=== PATIENT | female | born 1940 | race Caucasian/White ===

== ENCOUNTER 2017-11-01 06:24 | Day surgery (SDC) | payer MEDICARE, BC ==
[~2017-11-01 06:24] MED LIST: MORPHINE SULFATE 15 MG TABLET.SA PO PRN; ROPIVACAINE HCL/PF 100 MG, KETOROLAC TROMETHAMINE 30 MG, EPINEPHrine 0.2 MG in NORMAL S... IJ PRN; TRANEXAMIC ACID 1,000 MG in NORMAL SALINE 100 ML IV PRN; ceFAZolin SODIUM 1 GM VIAL IV PRN
--- NOTE | 2017-11-01 07:19 | ANES ---
Anesthesia Pre Procedure Eval Vitals/Labs: Last Vital Signs Temp 36.8 C 11/01/17 06:35 Pulse 89 11/01/17 06:35 Resp 17 11/01/17 06:35 BP 140/54 11/01/17 06:35 Pulse Ox 96 11/01/17 06:35 HOME MEDICATIONS Aspirin [Aspirin Enteric Coated] 81 mg PO HS 12/12/13 [Last Taken 10/25/17] Bimatoprost [Lumigan 0.01% Ophthalmic Solution] 1 drop EACHEYE HS 12/12/13 [ Last Taken 10/31/17] Lisinopril/Hydrochlorothiazide [Lisinopril-Hctz 20-12.5 mg Tab] 1 each PO DAILY 12/12/13 [Last Taken 11/01/17] Simvastatin [Zocor] 10 mg PO HS 12/12/13 [Last Taken 10/31/17] Ascorbic Acid [Vitamin C] 500 mg PO DAILY 10/28/17 [Last Taken 10/31/17] Hydrochlorothiazide [Microzide] 12.5 mg PO DAILY PRN 10/28/17 [Last Taken Unknown] Multivitamin [One Daily Essential] 1 each PO DAILY 10/28/17 [Last Taken Unknown] Meloxicam [Mobic] 15 mg PO DAILY 10/29/17 [Last Taken 10/25/17] Magnesium Hydroxide [Milk Of Magnesia] 30 ml PO DAILY PRN 11/01/17 [Last Taken Unknown] [place]-3S/Dha/Epa/Fish Oil/D3 [Fish Oil Gummies] 1 each PO DAILY 11/01/17 [Last Taken 10/31/17] Psoriasis Cream 1 applic TP ONCE PRN 11/01/17 [Last Taken 10/31/17] Ranitidine HCl [Zantac] 150 mg PO HS 11/01/17 [Last Taken 10/31/17] Allergies/Adverse Reactions: Allergies Allergy/AdvReac Type Severity Reaction Status Date / Time No Known Allergies Allergy Verified 10/28/17 16:42 - Planned Procedure Planned Procedure: Left Total Knee Arthroplasty Medication List Reviewed:: Yes Allergies Verified: Yes Medical History (Last Updated 11/01/17 @ 07:01 by Renetta Velez RN) Anemia CPAP (continuous positive airway pressure) dependence Lives with spouse Psoriasis Back pain Chronic sinusitis Hypercholesterolemia Hypertension Left bundle branch block (LBBB) Never used tobacco Seldom use of alcohol Sleep apnea Surgical History (Last Updated 11/01/17 @ 06:53 by Renetta Velez, RN) History of bilateral cataract extraction History of hysterectomy Status post total right knee replacement Family History (Last Updated 11/01/17 @ 06:55 by Renetta Velez, RN) Sister A-fib Glaucoma Daughter BBB (bundle branch block) Hypertension Mother Breast cancer Son Cancer of kidney Hypertension Father Family history unknown Brother Family history unknown Daughter Alive and well Hypertension Son Hypertension Hypercholesteremia Type 2 diabetes mellitus - Airway/Neck/Teeth Within Normal Limits:: Yes Teeth Condition: Intact Mallampatti Score: 2 Thyromental (T-M) distance: > 6 cm Mandibulo Hyoid distance: > 3 cm - Respiratory Respiratory: lungs clear Discussed smoking cessation including day of surgery: No Sleep Apnea currently treated: Yes Sleep Apnea by current assessment: No Discussed Risks/Treatment of MAGDALENA: No - Cardiovascular Tolerates Activity: Fair Heart Sounds: S1 & S2, Regular - Anesthesia Assessment and Plan ASA Class: PS, II Anesthesia Type Plan: Block - Left ultrasound guided peripheral nerve block for postop analgesia, Spinal
[2017-11-01] MEDS: RINGER'S SOLUTION,LACTATED 1,000 ML IV PRN ×3 (07:27→09:24)
[2017-11-01] MEDS ORDERED: ZOLPIDEM TARTRATE 5 MG TABLET PO PRN (10:02)
[2017-11-01] MEDS ORDERED: ACETAMINOPHEN 500 MG TABLET PO PRN (10:02)
[2017-11-01] MEDS ORDERED: MORPHINE SULFATE 2 MG/ML DISP.SYRIN IV PRN (10:02)
[2017-11-01] MEDS ORDERED: PROMETHAZINE HCL 5 MG in DEXTROSE 5 % IN WATER 50 ML IV PRN ×2 (10:02)
[2017-11-01] MEDS ORDERED: MAG HYDROX/ALUMINUM HYD/SIMETH 30 ML UDC PO PRN (10:02)
[2017-11-01] MEDS ORDERED: DEXTROSE 5%-LACTATED RINGERS 1,000 ML IV PRN (10:02)
[2017-11-01] MEDS ORDERED: diphenhydrAMINE HCL 50 MG/ML VIAL IV PRN (10:02)
[2017-11-01] MEDS ORDERED: oxyCODONE HCL/ACETAMINOPHEN 1 TAB TABLET PO PRN (10:02)
[2017-11-01] MEDS ORDERED: MAGNESIUM HYDROXIDE 30 ML UDC PO PRN ×2 (10:02→13:45)
--- NOTE | 2017-11-01 10:02 | OR ---
Operative Report - Dictated Report Narrative: Date: 11/01/2017 Preoperative diagnosis: Left Knee degenerative joint disease. Postoperative diagnosis: Left Knee degenerative joint disease. Procedure: Left Total knee arthroplasty. Surgeon: Garrett Smith M.D. Electrical System Specialist: Jose Eduardo Byrd PA-C Anesthesia: Spinal with regional block and local periarticular joint injection. Complications: None Specimens: Bone for disposal. Estimated blood loss: Minimal. Tourniquet time: 80 Minutes at 325 millimeters of mercury. Retained implants: Depuy Attune size 5 narrow left lugged cemented posterior stabilized femoral component. Size 4 fixed-bearing cemented tibial platform. 5 by 5 millimeter posterior stabilized cross-linked tibial insert. 35 millimeter medialized patella button. Indications: Mrs. Tavarez is a 77-year-old female who has had long-standing left knee pain and arthrosis. This patient was followed in my clinic for period of time with significant complaints of left knee pain consistent with arthritic changes. She had failed conservative measures including, but not limited to, activity modification, passage of time, medications, and other conservative measures. Patient wished to proceed with surgical treatment. The risks, benefits, and alternatives were discussed in clinic. The risks of , blood clots, bleeding, infection, nerve/tendon blood vessel/ injury, malposition of components, intraoperative fracture, postoperative limited range of motion, persistent pain, failure of components, and need for additional procedures. Patient wished to proceed consent was obtained after answering all questions. Procedure: After marking the correct extremity on the floor, the patient was taken to the operating room. A timeout was performed. IV antibiotics consisting of Ancef were administered prior to the procedure. A regional followed by spinal anesthetic was induced by anesthesia, per my request, on the operative table with all bony prominences well-padded. Mullins catheter was placed, and a bump was placed under the operative side buttock. SCDs and KUNAL hose were utilized on the nonoperative leg. A well-padded tourniquet was applied to the operative thigh. The operative leg was then pre-scrubbed with alcohol prepped, and draped in a standard sterile fashion. After exsanguinating the extremity with an Esmarch bandage, the tourniquet was inflated. After marking out the anterior knee for standard incision centered over the patella, the skin was incised and dissected down to the joint retinaculum. The joint retinaculum was marked out as well as the horizontal axis of the patella, and a standard medial parapatellar arthrotomy was then made. The most proximal aspect of the quadriceps tendon and the patella tendon insertion were protected from release. A partial synovectomy was performed as well as a resection of the infrapatellar fat pad. The distal femoral fat pad proximal to the trochlea was also resected using cautery. The soft tissues were elevated off the medial aspect of the proximal tibia using a Holman elevator ensuring that we did not transect the medial collateral ligament. Upon initial evaluation range of motion was approximately 5 degrees to 125 degrees of flexion. There were signs of advanced arthrosis in the medial, lateral, and patellofemoral joint spaces. There were large marginal osteophytes which were removed with a rongeur. The knee was hyperflexed and the patella was tucked laterally. Protecting the surrounding soft tissues with Homans, an entry drill was placed down the femoral canal using Whitesides line for guidance into the entry point. The intramedullary femoral alignment jimmy was utilized in order to cut the distal femur in 5 degrees of valgus resecting 10 millimeters of bone. Next the distal femur was sized to a size 5. A posterior referencing guide was utilized to place the distal femoral cutting block in 3 degrees of external rotation. This was pinned into place. The rotation was confirmed both visually and based on anatomic landmarks. The 4 in 1 cutting jig of the appropriate size was utilized in order to make all bony cuts. The angle wing was used to ensure no notching. Retractors were utilized in order to protect surrounding soft tissues. This cut did not result in any excessive notching. We then cut the box centered over the distal femur. This allowed for resection of the anterior and posterior cruciate ligaments. I then turned my attention to the preparation of the tibia. Using an extra medullary tibial alignment jimmy, 2 millimeters of bone was resected off the medial articular surface. This was made perpendicular to the mechanical axis of the joint with the alignment jimmy centered over the ankle mortise. The alignment jimmy was checked and was noted to be parallel to the mechanical axis, centered over the medial one third of the tibial tubercle, paralleling the anterior surface of the tibia. We then turned our attention to the remaining meniscus and soft tissues. These were removed while protecting the surrounding ligaments and soft tissues. The marginal osteophytes off the anterior, posterior, medial, lateral aspects of the femur and tibia were removed. The tibia was sized out to a size 4. Next the tibia was drilled and punched in an externally rotated position. Next the trial femur and a series of tibial inserts were utilized in order to allow for full extension and maximal flexion. It was found that a 5 millimeter insert gave the best range of motion and stability at multiple flexion points as well as at full extension there was less than 2 mm of gapping both medially and laterally. There is minimal anterior translation with the knee at 90 degrees of flexion and no signs of being able to dislocate the knee. The patella was then prepared. The initial thickness was 18 millimeters. This was reamed down to 11 millimeters parallel to the anterior surface of the patella. It was sized out to a size 35 medialized patella button. This was then drilled and trialed. Without any medial restraint the patella tracked appropriately and did not sublux or dislocate. At this point, it was felt these were the appropriate sized implants, and all trials were removed. The standard periarticular joint injection consisting of ropivacaine, Toradol, and epinephrine were injected into the periarticular joint tissues. The bony surfaces were thoroughly irrigated with a pulsatile- suction saline irrigation device. A bone plug from the prior resected anterior chamfer cut was placed into the drill hole at the distal femur. The bony surfaces were then dried in preparation for placement of the implants. The cement was vacuum mixed per the portfolio director's instructions. The cement was placed on the dry bony surfaces and posterior aspect of the implants. The implants were impacted into place, removing all extruded cement. At this point anesthesia administered tranexamic acid per protocol intravenously. The knee was placed in extension with axial loading with the trial insert while the cement cured. Once the cement cured, all remaining extruded cement was removed. The knee was placed through a range of motion with the trial insert to ensure appropriate range of motion and stability. Final range of motion was approximately 0 to 125 degrees. The knee was again thoroughly irrigated with pulsatile saline lavage. The final polyethylene insert was then impacted into place ensuring no retained soft tissues. The remaining periarticular joint injection was injected. A medium Hemovac drain was placed exiting superior laterally. The knee was then placed over a triangle and the arthrotomy was closed with interrupted #1 Vicryl after thoroughly irrigating the joint. The deep and subcutaneous tissues were closed with interrupted 0 and 3-0 Vicryl respectively. Skin was closed with a running subcutaneous 3-0 Monocryl and Prineo Dermabond dressing. 4 x 4's, Sof-Rol, and a full leg Shaan wrap were applied. All sponge, needle, blade, and instrument counts were correct prior to closing the wounds. Postoperative condition: The patient was awoken and transferred to the postanesthesia care unit in stable condition. Plan is to be admitted to the inpatient medical/surgical floor postoperatively for 24 hours of IV antibiotics , physical therapy, occupational therapy, and medical comanagement. Patient will be weightbearing as tolerated with range of motion as tolerated. DVT prophylaxis will be with SCDs, KUNAL hose, and pharmacological anticoagulation. Anticipated hospital stay is approximately 1-3 days.
--- NOTE | 2017-11-01 10:24 | ANES ---
Post Anesthesia Discharge - Transfer of Care Transfer of Care handoff given to nurse: Yes - Discharge from PACU Discharge from PACU when meets criteria: Yes - Discharge to ASU Discharge to ASU-no complications/pt stable: Yes
--- NOTE | 2017-11-01 10:29 | ANES ---
Anesthesia Procedure Note Procedure Note: ANESTHESIA PROCEDURE NOTE Date of Procedure: 11/01/2017. Time of procedure: 0750. Performed by: Valeriy Aj CRNA Step Down Specialist: None. Preprocedure diagnosis: Left knee degenerative joint disease. Post procedure diagnosis: Same. Procedure: Left ultrasound guided adductor canal block for postoperative analgesia. Indications: The patient is a 77 -year-old female, requesting left ultrasound- guided abductor canal block for postoperative analgesia related to left total knee arthroplasty. Findings: See below. Details of the procedure: The tissue over the intended target site was cleansed with ChloraPrepand draped in a sterile fashion. 2 ml Lidocaine 1 % was infiltrated to the skin and subcutaneous tissue at the intended target site. Under sterile technique and ultrasound guidance a 18-gauge Tuohy needle was inserted through the left sartorius muscle to the saphenous nerve just anterior and medial to the superficial femoral artery and vein. 15 mL's of 0.5% bupivacaine was injected after negative aspiration for blood. Needle tip and spread of local anesthetic surrounding the saphenous nerve was observed throughout the injection with real time ultrasound visualization. The images were retained in the Hospital medical database . EBL: Minimal. Fluids: N/A. Specimen: N/A. Post procedure condition: The patient tolerated the procedure well. No complications were noted. Thank you for this consultation. Valeriy Aj CRNA
[2017-11-01] MEDS: KETOROLAC TROMETHAMINE 15 MG/ML VIAL IV SCH ×3 (11:53→23:47)
[2017-11-01] MEDS: ONDANSETRON HCL/PF 2 MG/ML VIAL IV PRN (11:54)
--- NOTE | 2017-11-01 13:44 | ANES ---
Post Anesthesia Assessment - Vital Signs Vitals: Last Vital Signs Temp 36.3 C 11/01/17 10:15 Pulse 96 11/01/17 10:40 Resp 15 11/01/17 10:40 BP 121/52 11/01/17 10:40 Pulse Ox 97 11/01/17 10:40 Airway Patency: Normal - Mental Status Level Of Consciousness: Awake - Pain Level Pain Score: 0 - N/V Assessment Nausea/Vomiting Presence: None Dehydration:: No
[2017-11-01] MEDS ORDERED: HYDROCHLOROTHIAZIDE 12.5 MG CAPSULE PO PRN (13:45)
[2017-11-01] MEDS: ceFAZolin SODIUM 1 GM in DEXTROSE 5 % IN WATER 100 ML IV SCH ×4 (14:48→20:03)
[2017-11-01] MEDS: MORPHINE SULFATE 15 MG TABLET.SA PO SCH (20:04)
[2017-11-01] MEDS ORDERED: SIMVASTATIN 10 MG TABLET PO SCH (21:00)
[2017-11-01] MEDS ORDERED: BIMATOPROST 25 DROP BTL EACHEYE SCH (21:00)
[2017-11-01] MEDS ORDERED: SENNOSIDES/DOCUSATE SODIUM 1 TAB TABLET PO SCH (21:00)
[2017-11-01] MEDS ORDERED: FAMOTIDINE 20 MG TABLET PO SCH (21:00)
[2017-11-02] MEDS: ceFAZolin SODIUM 1 GM in DEXTROSE 5 % IN WATER 100 ML IV SCH ×2 (01:21)
[2017-11-02] MEDS: KETOROLAC TROMETHAMINE 15 MG/ML VIAL IV SCH ×2 (04:42→12:09)
[2017-11-02 05:33] LABS: Hematocrit 28.9 % (37.0-47.0); Hemoglobin 9.7 gm/dL (12.5-16.0); Mean Cell Volume 92.6 fl (78-100); Mean Corpuscular Hemoglobin 31.1 pg (27-31); Mean Corpuscular Hgb Conc 33.6 g/dl (32-36); Platelet Count 168 K/mm3 (150-450); Red Blood Count 3.12 M/mm3 (4.2-5.4); Red Cell Distribution Width 12.8 % (11.5-14.0); White Blood Count 9.6 K/mm3 (4.0-10.5)
[2017-11-02 05:38] LABS: Anion Gap 9.1 mmol/L (6.8-13.8); BUN/Creatinine Ratio 26.2 (9.0-21.6); Calcium * 8.6 mg/dL (7.9-10.9); Estimated Creat Clear 43.1; Potassium 4.1 mmol/L (3.4-4.6)
[2017-11-02] MEDS ORDERED: ROPIVACAINE HCL/PF 100 MG, EPINEPHrine 0.2 MG, KETOROLAC TROMETHAMINE 30 MG in NORMAL S... IJ PRN (06:00)
[2017-11-02] MEDS ORDERED: TRANEXAMIC ACID 1,000 MG in NORMAL SALINE 100 ML IV PRN (06:00)
[2017-11-02] MEDS ORDERED: RINGER'S SOLUTION,LACTATED 1,000 ML IV PRN (06:00)
[2017-11-02] MEDS ORDERED: MORPHINE SULFATE 15 MG TABLET.SA PO PRN (06:00)
[2017-11-02] MEDS ORDERED: ceFAZolin SODIUM 1 GM VIAL IV PRN (06:00)
[2017-11-02] MEDS: ONDANSETRON HCL/PF 2 MG/ML VIAL IV PRN (07:53)
[2017-11-02] MEDS ORDERED: HYDROCHLOROTHIAZIDE 12.5 MG CAPSULE PO SCH (09:00)
[2017-11-02] MEDS ORDERED: OMEGA-3 FATTY ACIDS 1 CAP CAPSULE PO SCH (09:00)
[2017-11-02] MEDS ORDERED: ASCORBIC ACID 500 MG TABLET PO SCH (09:00)
[2017-11-02] MEDS ORDERED: LISINOPRIL 20 MG TABLET PO SCH (09:00)
[2017-11-02] MEDS ORDERED: LISINOPRIL 10 MG TABLET PO SCH (09:00)
[2017-11-02] MEDS ORDERED: MULTIVITAMINS 1 CAP CAPSULE PO SCH (09:00)
[2017-11-02] MEDS ORDERED: ENOXAPARIN SODIUM 40 MG/0.4 ML SYRG SC SCH (09:03)
[2017-11-02] MEDS: MORPHINE SULFATE 15 MG TABLET.SA PO SCH (10:26)
--- NOTE | 2017-11-02 13:19 | DS ---
(1) Hypertension Problem: Chronic (2) Hyperlipidemia Problem: Chronic (3) Acute blood loss anemia Problem: Chronic (4) MAGDALENA (obstructive sleep apnea) Problem: Chronic (5) GERD (gastroesophageal reflux disease) Problem: Chronic (6) Knee joint replacement status Problem: Acute Qualifiers: Laterality: left Qualified Code(s): Z96.652 - Presence of left artificial knee joint Description of Stay: Mrs. Tavarez was admitted to the floor after undergoing left total knee arthroplasty. Tolerated this well. Was admitted to the floor postoperatively for 24 hours of IV antibiotics, pain control, medical comanagement, and occupational and physical therapy. OT and PT were consulted to assist with activities of daily living and ambulation. Was made weightbearing as tolerated with range of motion as tolerated. Pain was initially controlled with IV regimen. This was transitioned to oral once tolerating a by mouth intake. Was resumed on home diet and medications. Had a Mullins catheter inserted and the operating room which was discontinued on postoperative day 1. A drain was placed intraoperatively into the knee which was discontinued on postoperative day 1. Lovenox SCD and KUNAL hose were utilized for DVT prophylaxis. Vital signs remained stable to the hospital course. Serial labs were obtained which showed a final hemoglobin of 9.7 grams. BMP was reviewed and was stable. Physical examination throughout the hospital course showed an extremity that had sensation that was intact to light touch, palpable pulses, a benign wound, motor intact to the toes, ankle, and knee. Knee range of motion was approximately 5 degrees to 70 degrees. Once an oral pain regimen was tolerated and physical therapy goals were met, it was felt that they were stable for discharge to home. Instructions: Continue with weightbearing as tolerated and range of motion as tolerated. It is okay to shower and get the wound wet as long as there is no drainage from the wound. Do not bathe or soak the wound. If there is any drainage from the wound keep the wound clean and dry and cover with dry gauze and tape. Change every 2-3 days as needed if there is any drainage. Cover wound while showering if there is any drainage. Continue with physical therapy. Resume home diet. Report any fever over 101.5 Fahrenheit, uncontrolled pain, increased drainage, foul odor of drainage, new or increased calf pain or shortness of breath, or any other significant complaints. A 325mg dialy aspirin will be started after finishing anticoagulation if not allergic. Continue with KUNAL hose on the operative extremity until instructed otherwise. No driving until instructed otherwise. Follow up in approximately 10-14 days. Procedures Performed: see notes below List Procedures: Left total knee arthroplasty Results and Findings: Lab Pending Results 11/02/17 05:20: WBC 9.6, RBC 3.12 L, Hgb 9.7 L, Hct 28.9 L, MCV 92.6, MCH 31.1 H , MCHC 33.6, RDW 12.8, Plt Count 168, MPV 10.0 11/02/17 05:20: Sodium 137, Plasma Sodium 138, Potassium 4.1, Chloride 101, Carbon Dioxide 31.0, Anion Gap 9.1, BUN 27 H, Creatinine 1.03, Est GFR (Non-Af Amer) 55 L D, BUN/Creatinine Ratio 26.2 H, Random Glucose 139 H, Calcium 8.6 Discharge Location: Home Disposition: Home self-care Condition: Good Discharge Activity: Activity as tolerated, Weight bearing Discharge Diet: General/regular food Referrals: Prachi Franco ARNP [Non Staff Physicians] - Additional Patient Instructions (free text): Outpatient Physical Therapy at [facility] on Wednesday11/03/17 at 1:[address]pm. Dr Smith's Orthopedic follow up appt. on Wednesday11/23/17 at 9:45am. Prescriptions (Any new or edited meds): Enoxaparin Sodium [Lovenox] 40 mg SC Q24H #7 disp.syrin Morphine Sulfate [Ms Contin] 15 mg PO Q12H #20 tablet.sa oxyCODONE HCL/ACETAMINOPHEN [Percocet 5 MG/325 MG] 2 tab PO Q4H PRN #60 tablet PRN Reason: Moderate Pain (Pain Scale 4-6) Complete Home Medications List: Complete Home Medication List: Bimatoprost [Lumigan 0.01% Ophthalmic Solution] 1 drop EACHEYE HS 12/12/13 Lisinopril/Hydrochlorothiazide [Lisinopril-Hctz 20-12.5 mg Tab] 1 each PO DAILY 12/12/13 Simvastatin [Zocor] 10 mg PO HS 12/12/13 Ascorbic Acid [Vitamin C] 500 mg PO DAILY 10/28/17 Hydrochlorothiazide [Microzide] 12.5 mg PO DAILY PRN 10/28/17 Multivitamin [One Daily Essential] 1 each PO DAILY 10/28/17 Meloxicam [Mobic] 15 mg PO DAILY 10/29/17 Magnesium Hydroxide [Milk Of Magnesia] 30 ml PO DAILY PRN 11/01/17 [place]-3S/Dha/Epa/Fish Oil/D3 [Fish Oil Gummies] 1 each PO DAILY 11/01/17 Psoriasis Cream 1 applic TP ONCE PRN 11/01/17 Ranitidine HCl [Zantac] 150 mg PO HS 11/01/17 Enoxaparin Sodium [Lovenox] 40 mg SC Q24H #7 disp.syrin 11/02/17 Morphine Sulfate [Ms Contin] 15 mg PO Q12H #20 tablet.sa 11/02/17 Sennosides/Docusate Sodium [Senokot-S] 2 tab PO HS tablet 11/02/17 oxyCODONE HCL/ACETAMINOPHEN [Percocet 5 MG/325 MG] 2 tab PO Q4H PRN #60 tablet 11/02/17 Amb Orders for Discharge: PT Evaluation and Treatment* Facility: [facility], Location: Rehabilitation Services
[2017-11-02 13:58] VITALS: BP 126/74
== END 2017-11-02 14:15 | disposition home or self-care (01) | DRG 470 ==
LOC: MS 06:24 → EDSTATUS 08:00
PROVIDERS: ADMIT Orthopaedic Surgery; ATTEND Orthopaedic Surgery
DX: I10 Essential (primary) hypertension; E78.5 Hyperlipidemia, unspecified; D62 Acute posthemorrhagic anemia; Z96.659 Presence of unspecified artificial knee joint; M17.0 Bilateral primary osteoarthritis of knee
CPT/HCPCS: 36415; 73560; 80048; 85027; 94660; 97110; 97116; 97161; 97165; J2405